=== PATIENT | male | born 1950 | race Hispanic/Latino ===

== ENCOUNTER 2017-03-06 11:12 | Outpatient (CLI) | payer MEDICARE ==
--- NOTE | 2017-03-06 14:37 | RAD ---
FRONTAL AND LATERAL IMAGING OF THE CHEST: Date: 03-06-17 Comparison: 12-05-16 History: Malignant neoplasm of the lung. FINDINGS: There is complete opacification of the right hemithorax with shift of the mediastinal structures, inc luding the trachea, to the right. Post-surgical clips are seen in the right suprahilar region. Findin g suggests prior right pneumonectomy. Left lung is clear. IMPRESSION: Stable appearance of the chest as detailed above. POS: [facility]
== END 2017-03-06 11:13 | disposition home or self-care (01) ==
LOC: RAD 11:12
PROVIDERS: ATTEND Internal Medicine Medical Oncology
DX: Z51.11 Encounter for antineoplastic chemotherapy (principal); C34.2 Malignant neoplasm of middle lobe, bronchus or lung; R11.2 Nausea with vomiting, unspecified; D70.9 Neutropenia, unspecified
CPT/HCPCS: 36415; 71020; 80053; 82248; 83615; 84100; 84550

== ENCOUNTER 2017-06-02 11:08 | Outpatient (CLI) | payer MEDICARE ==
--- NOTE | 2017-06-02 11:43 | RAD ---
2 VIEWS CHEST: Date: 06/02/17 PROVIDED CLINICAL HISTORY: History of lung cancer status post right pneumonectomy. FINDINGS: Comparison made with study dated 03/06/17. Opacification of the right hemithorax with shift of the mediastinal contents rightward is again noted compatible with the provided clinical history of prior pneumonectomy. The left lung remains clear. T here is no evidence for left-sided pleural fluid. There is no evidence for pneumothorax. IMPRESSION: Stable radiographic appearance of the chest. POS: [facility]
== END 2017-06-02 11:09 | disposition home or self-care (01) ==
LOC: RAD 11:08
PROVIDERS: ATTEND Internal Medicine Medical Oncology
DX: C34.90 Malignant neoplasm of unspecified part of unspecified bronchus or lung (principal); Z90.2 Acquired absence of lung [part of]
CPT/HCPCS: 71046

== ENCOUNTER 2017-09-01 12:45 | Outpatient (CLI) | payer MEDICARE ==
--- NOTE | 2017-09-01 13:19 | RAD ---
CHEST PA AND LATERAL VIEWS: HISTORY: Malignant neoplasm middle lobe bronchus of lung. Lung cancer. Right pneumonectomy. COMPARISON: 06/02/2017 FINDINGS: Postop changes of right pneumonectomy with opacification of the right hemithorax and mediastinal shif t to the right is stable since the previous study. The left lung is well expanded and clear. There are mild degenerative changes in the spine. IMPRESSION: Stable exam. No acute process. POS: [facility]
== END 2017-09-01 12:46 | disposition home or self-care (01) ==
LOC: RAD 12:45
PROVIDERS: ATTEND Internal Medicine Medical Oncology
DX: C34.2 Malignant neoplasm of middle lobe, bronchus or lung (principal)
CPT/HCPCS: 71046

== ENCOUNTER 2017-11-24 11:27 | Outpatient (CLI) | payer MEDICARE | END 2017-11-24 11:28 | disposition home or self-care (01) | LOC: BICRAD 11:27 | PROVIDERS: ATTEND Internal Medicine Medical Oncology | DX: C34.2 Malignant neoplasm of middle lobe, bronchus or lung (principal); Z90.2 Acquired absence of lung [part of] | CPT/HCPCS: 71046 ==

== ENCOUNTER 2018-02-14 13:45 | Outpatient (CLI) | payer MEDICARE ==
--- NOTE | 2018-02-14 16:09 | RAD ---
CHEST 2 VIEWS: Date: 02/14/18 HISTORY: Malignant neoplasm of middle lobe. COMPARISON: 11/24/17, 09/23/15. FINDINGS: Persistent opacification of the right hemithorax compatible with a right pneumonectomy. There is resu ltant rightward deviation of the cardiomediastinal silhouette. Compensatory hyperinflation left lung. No pneumothorax or osseous abnormalities. IMPRESSION: No acute cardiopulmonary process. No significant interval change. POS: [facility]
== END 2018-02-14 13:46 | disposition home or self-care (01) ==
LOC: BICRAD 13:45
PROVIDERS: ATTEND Internal Medicine Medical Oncology
DX: C34.2 Malignant neoplasm of middle lobe, bronchus or lung (principal)
CPT/HCPCS: 71046

== ENCOUNTER 2018-05-09 12:44 | Outpatient (CLI) | payer MEDICARE ==
--- NOTE | 2018-05-09 15:05 | RAD ---
CHEST TWO VIEWS: INDICATIONS: History of malignant neoplasm of the middle lobe. Also history of neutropenia, nausea, and vomiting. COMPARISON: 02/14/2018 FINDINGS: There is stable, complete opacification of the right hemithorax. The left lung is clear. There is s table shifting of the mediastinum from left to right. Surgical clips within the right hilar region a re stable. Osseous structures are unchanged. IMPRESSION: No acute abnormality is seen. POS: [facility]
== END 2018-05-09 12:45 | disposition home or self-care (01) ==
LOC: BICRAD 12:44
PROVIDERS: ATTEND Internal Medicine Medical Oncology
DX: C34.2 Malignant neoplasm of middle lobe, bronchus or lung (principal)
CPT/HCPCS: 71046

== ENCOUNTER 2018-05-23 12:45 | Outpatient (CLI) | payer MEDICARE ==
--- NOTE | 2018-05-23 14:46 | RAD ---
STANDARD ADULT BONE SURVEY: INDICATIONS: History of malignant neoplasm of the bronchus and multiple myeloma. COMPARISON: Whole body bone scan, dated 10/11/2016. FINDINGS: No suspicious lytic or osteoblastic lesion is identified involving the axial or appendicular skeleton . There is mild degenerative arthrosis of both hips. There are scattered vascular calcifications. There are suspected pars defects of L4 with grade 1 anterolisthesis. Advanced disk degenerative dise ase is seen at L2-L3, L4-L5, and L5-S1, with degenerative levoscoliosis centered at L2-L3. There is slight retrolisthesis of L2 on L3 and of L1 on L2. There is slight retrolisthesis of C3 on C4. Ther e is post surgical change of a right pneumonectomy. IMPRESSION: No suspicious osteolytic or osteoblastic lesion demonstrated. POS: [facility]
== END 2018-05-23 12:46 | disposition home or self-care (01) ==
LOC: BICRAD 12:45
PROVIDERS: ATTEND Internal Medicine Medical Oncology
DX: M89.9 Disorder of bone, unspecified (principal); C90.00 Multiple myeloma not having achieved remission
CPT/HCPCS: 77075

== ENCOUNTER 2018-06-05 10:38 | Outpatient (CLI) | payer MEDICARE ==
--- NOTE | 2018-06-05 15:08 | NM ---
WHOLE BODY BONE SCAN: HISTORY: Malignant neoplasm of middle lobe, bronchus of lung. RADIOPHARMACEUTICAL: 32 mCi Technetium 99m-MDP injected intravenously. FINDINGS: Multiple foci of abnormally increased tracer localization is seen in the skeleton including the thora columbar spine, pelvis, right proximal femur, humeral heads, ribs, and right distal humerus. These a re consistent with metastatic disease. Tracer excretion through the kidneys within normal limits. I ncreased uptake in the elbows, breasts, and feet are consistent with degenerative changes. IMPRESSION: Findings are consistent with osseous metastatic disease. POS: [facility]
== END 2018-06-05 10:39 | disposition home or self-care (01) ==
LOC: NM 10:38
PROVIDERS: ATTEND Internal Medicine Medical Oncology
DX: C34.2 Malignant neoplasm of middle lobe, bronchus or lung (principal); R74.8 Abnormal levels of other serum enzymes
CPT/HCPCS: 78306; A9503

== ENCOUNTER 2018-06-15 08:48 | Outpatient (CLI) | payer MEDICARE ==
--- NOTE | 2018-06-15 11:42 | PET ---
PET WITH CT SKULL TO MID THIGH: CLINICAL HISTORY: Malignant neoplasm of middle lobe right bronchus/right lung. RADIOPHARMACEUTICAL: 10.7 mCi F18-FDG IV interspersed with 10 mL 0.9% sodium chloride. FINDINGS: There are numerous abnormal hypermetabolic lesions present. Within the abnormal right hemithorax whic h demonstrates a decreased volume and circumferential pleural abnormal thickening and internal hypode nsity, there is increased metabolic activity along the pleural margin notably anterolaterally up to 2 .7 SUV. The underlying liver is elevated. The liver demonstrates a heterogeneous degree of metabolic activity. The possibility of small superimposed liver lesions cannot be entirely excluded as SUV major urements do measure greater than 3 and some of these are punctate in size. There is a soft tissue nod ule adjacent to the left scapula with a SUV of 3.8. Numerous hypermetabolic foci centered within the lower thoracic and upper lumbar spine involving T11, T12, L1, and L2 are present, more obvious within the T11 and L2 vertebral bodies. SUV maximum measures up to 2.9 within these regions. There is a hyp ermetabolic lesion of the left 10th rib with SUV maximum of 3.1. There is a hypermetabolic lesion [place] roximating the right ischial tuberosity with a SUV of approximately 3.9. A focus of increased metabol ic activity localizes to the right aspect of the rectosigmoid colon, 4.6 SUV, nonspecific given its l ocation within the alimentary canal. The possibility of an underlying colorectal lesion cannot be exc luded on the basis of this exam, however. IMPRESSION: 1. Scintigraphic evidence to indicate diffuse osseous and soft tissue metastases. 2. Indeterminate focus of hypermetabolism at the rectosigmoid colon. Recommend follow-up with colono scopy. 3. Subtle, nonspecific, heterogeneous metabolic activity of the liver as discussed above. Recommend a follow-up liver mass protocol CT of abdomen to exclude the possibility of small, developing hepatic lesions. POS: [facility]
== END 2018-06-15 08:49 | disposition home or self-care (01) ==
LOC: PET 08:48
PROVIDERS: ATTEND Internal Medicine Medical Oncology
DX: C34.2 Malignant neoplasm of middle lobe, bronchus or lung (principal); C79.51 Secondary malignant neoplasm of bone; C49.9 Malignant neoplasm of connective and soft tissue, unspecified
CPT/HCPCS: 78815; A9552

== ENCOUNTER 2018-06-21 12:30 | Outpatient (CLI) | payer MEDICARE ==
--- NOTE | 2018-06-21 13:34 | RAD ---
TWO VIEWS RIGHT HUMERUS: HISTORY: Bone disorder. Evaluate for a pathologic fracture. COMPARISON: None. FINDINGS: No fracture. No cortical irregularity or periosteal reaction. No lytic or blastic lesions. IMPRESSION: Unremarkable 2 views right humerus. POS: [facility]
--- NOTE | 2018-06-21 13:47 | RAD ---
LUMBAR SPINE 2 VIEWS: HISTORY: Disorder of the bone. Evaluate for pathologic fracture. COMPARISON: None. FINDINGS: There are 5 lumbar-type vertebral bodies. Mild leftward curvature of the lumbar spine. Lumbar spine vertebral body height is maintained. There is no fracture. There is grade I retrolisthesis of L1 u klarissa L2, L2 upon L3. There is grade I-II anterolisthesis of L4 upon L5. Vacuum disk phenomenon at L2 -L3. There appears to be sclerosis involving the L2 vertebral body without evidence of collapse or fractur e. The possibility of metastatic involvement is raised and is confirmed on a CT used for attenuation correction from a PET scan on 06/15/2018. FINDINGS: 1. Osseous metastasis at L2. No evidence of a pathologic fracture. 2. Extensive degenerative change of the lumbar spine with vacuum disk phenomenon and spondylolysis. POS: [facility]
--- NOTE | 2018-06-21 13:53 | RAD ---
PELVIC RADIOGRAPH: DATE: 06/21/2018. PROVIDED CLINICAL HISTORY: Lung cancer. FINDINGS: Correlation is made with CT data acquired as part of the PET CT examination of 06/15/2018 as well as t he bone scan dated 06/05/2018. There is subtle asymmetric sclerosis present within the intertrochanter ic region of the right proximal femur, likely corresponding to the sclerotic lesion seen in this loca tion on the CT portion of the PET examination referenced above. There are several additional sclerot ic lesions present within the pelvis seen by CT that are less radiographically apparent. IMPRESSION: Findings compatible with known osseous metastatic disease. POS: [facility]
--- NOTE | 2018-06-21 13:57 | RAD ---
THORACIC SPINE THREE VIEWS: 06/21/2018 HISTORY: Disorder of bone. COMPARISON: Bone scan on 06/05/2018. FINDINGS: There are post surgical changes involving the right hemithorax with shift of the mediastinal structur es to the right and complete opacification of the right hemithorax, likely related to a right lobecto my. There is increased density seen within the right aspect of the T11 vertebral body and more diffusely involving the L2 vertebral body, which corresponds to sclerotic metastatic lesions within these verte bral bodies on prior PET CT scan examination, and these areas also demonstrated abnormal uptake on ramone ne scan. No definite additional sclerotic or lytic lesions are appreciated within the remaining vert ebral bodies, although, on the lateral projection, overlying structures limit evaluation of the mid a nd upper thoracic spine. There is right convex curvature of the thoracolumbar spine. IMPRESSION: 1. Sclerotic metastatic lesions in the T12 and L2 vertebral bodies, which correspond to abnormalitie s seen on prior PET scan on 06/15/2018 and prior bone scan on 05/23/2018. 2. Multilevel degenerative changes. 3. No fracture or subluxation is appreciated. 4. Mild S-shaped scoliotic curvature, thoracolumbar spine. 5. Post surgical changes related to right lobectomy. POS: [facility]
== END 2018-06-21 12:31 | disposition home or self-care (01) ==
LOC: BICRAD 12:30
PROVIDERS: ATTEND Internal Medicine Medical Oncology
DX: M84.411A Pathological fracture, right shoulder, initial encounter for fracture (principal); M89.8X9 Other specified disorders of bone, unspecified site; C34.2 Malignant neoplasm of middle lobe, bronchus or lung; C79.51 Secondary malignant neoplasm of bone; M47.815 Spondylosis without myelopathy or radiculopathy, thoracolumbar region; M47.816 Spondylosis without myelopathy or radiculopathy, lumbar region; Z98.890 Other specified postprocedural states
CPT/HCPCS: 72072; 72100; 72170

== ENCOUNTER 2018-07-02 08:43 | Day surgery (SDC) | payer MEDICARE, BC ==
[2018-06-29 13:25] VITALS: BMI 31.4
[2018-07-02 08:58] LABS: Hemoglobin 13.2 g/dL (14.0-18.0); Mean Corpuscular HGB CONC 31.5 g/dL (32.0-36.0); Mean Corpuscular Hemoglobin 28.6 pg (27.0-31.0); Mean Corpuscular Volume 90.8 fL (78.0-98.0); Platelet Count 302 thou/uL (130-400); RBC Distribution Width 13.3 % (11.5-14.5); Red Blood Cell (RBC) Count 4.61 mill/uL (4.70-6.10); White Blood Cell (WBC) Count 6.3 thou/uL (4.8-10.8)
[2018-07-02 09:04] LABS: Prothrombin Time 13.6 SEC (12.0-14.7)
[2018-07-02 09:05] LABS: PTT 35.7 SEC (22.9-36.1)
[2018-07-02] MEDS ORDERED: Sodium Chloride 0.9% 1,000 ML IV SCH (10:00)
[2018-07-02] MEDS ORDERED: Acetaminophen 500 MG TAB PO PRN (10:00)
[2018-07-02] MEDS ORDERED: hydrALAZINE 20 MG/ML VIAL SLOW IVP SCH (10:00)
[2018-07-02] MEDS ORDERED: Sodium Bicarbonate 2.5 MEQ/5 ML VIAL ONE (10:20)
[2018-07-02] MEDS ORDERED: Fentanyl 100 MCG/2 ML VIAL ONE (10:20)
[2018-07-02] MEDS ORDERED: Lidocaine 1% PF 5 ML VIAL ONE (10:20)
[2018-07-02] MEDS ORDERED: Midazolam HCl 2 mg/2 ml Vial ONE (10:20)
[2018-07-02 12:30] VITALS: BP 190/107; TEMP 98.1
--- NOTE | 2018-07-02 13:35 | CT ---
CT GUIDED BONE BIOPSY: HISTORY: Metastatic disease. COMPARISON: A PET CT 06/15/2018. FINDINGS: The patient was brought to the CT suite. All questions were answered. Informed consent was obtained . Timeout performed. The patient's right buttocks was prepped and draped in normal fashion and the left buttocks was prepp ed and draped in normal sterile fashion. The safest locale for biopsy ended up being the left sacral area of sclerosis. Using a 16-gauge biopsy set, a 15 mm core was obtained through the area of sclerosis. Pathology conf irmed adequacy. IMPRESSION: Technically successful CT-guided biopsy. Pathology is pending. POS: [facility]
== END 2018-07-02 13:00 | disposition home or self-care (01) ==
LOC: CT 08:43
PROVIDERS: ATTEND Internal Medicine Medical Oncology
PROC: 0QB13ZX Excision of Sacrum, Percutaneous Approach, Diagnostic (ICD-10-PCS; principal; 2018-07-02)
DX: C79.51 Secondary malignant neoplasm of bone (principal); C34.2 Malignant neoplasm of middle lobe, bronchus or lung; E78.5 Hyperlipidemia, unspecified; I10 Essential (primary) hypertension; E11.9 Type 2 diabetes mellitus without complications; Z87.891 Personal history of nicotine dependence; Z79.899 Other long term (current) drug therapy
CPT/HCPCS: 20225; 36415; 77012; 85027; 85610; 85730; 88307; 88333; 88341; 88342; J0360; J2001; J2250; J3010

== ENCOUNTER 2018-08-16 10:06 | Day surgery (SDC) | payer BC, MEDICARE ==
[2018-08-16] MEDS ORDERED: Lidocaine 1% PF 5 ML VIAL ONE (10:44)
[2018-08-16] MEDS ORDERED: PHENYLEPHRINE-NS 100 MCG/ML 10 ML SYRINGE ONE (10:44)
[2018-08-16] MEDS ORDERED: Ondansetron PF 4 MG/2 ML Vial ONE (10:44)
[2018-08-16] MEDS ORDERED: PROPOFOL 200 MG/20 ML VIAL ONE (10:44)
[2018-08-16] MEDS ORDERED: Bupivacaine/Epinephrine 0.25% 30 ML VIAL ONE (13:08)
[2018-08-16] MEDS ORDERED: Lidocaine 2% PF 5 ML VIAL ONE (13:08)
[2018-08-16] MEDS ORDERED: Fentanyl 100 MCG/2 ML VIAL ONE (13:09)
[2018-08-16] MEDS ORDERED: Midazolam HCl 2 mg/2 ml Vial ONE (13:09)
--- NOTE | 2018-08-16 17:20 | RAD ---
PORTABLE CHEST ONE VIEW: 08/16/2018 3:04 p.m. HISTORY: Mediport placement. COMPARISON: 05/09/2018 FINDINGS: There is stable, complete opacification of the right hemithorax with mediastinal shift to the right. The heart size is stable. The parenchymal changes in the left lung base have worsened in the interi m, since 05/09/2018. A superimposed acute process cannot be excluded. There is a right internal jugular Port-A-Cath with the tip in the projection of the SVC. No definite pneumothorax is seen. POS: [facility]
--- NOTE | 2018-08-16 17:29 | OP ---
DATE OF PROCEDURE: 08/16/2018 PREOPERATIVE DIAGNOSIS: Lung cancer. POSTOPERATIVE DIAGNOSIS: Lung cancer. PROCEDURE PERFORMED: Tunnelled central line subcutaneous port (MediPort CT injectable). ANESTHESIA: General. ESTIMATED BLOOD LOSS: Minimal. COMPLICATIONS: None. SPECIMEN: None. FINDINGS: Tip of the catheter was at atriocaval junction. DESCRIPTION OF PROCEDURE: The patient was taken to the operating room and laid supine on the operating room table. After general anesthetic was obtained, bilateral neck and chest were prepped and draped in a sterile fashion. Local anesthetic was infiltrated over the right internal jugular vein. Internal jugular vein was cannulated using a 22-gauge finder needle, followed by a Seldinger needle. Wire was passed into the superior vena cava under fluoro guidance. A small manpreet was made to at the wire entrance site. A separate 3 cm incision was made in the right upper chest. Subcutaneous pocket made below the lower incision. The tubing for the MediPort tunnelled from the inferior to superior incision. Introducer sheath was placed over the wire into the superior vena cava under fluoro guidance. The dilator and wire were removed. The end of the catheter sewn into the sheath. The sheath was peeled away. The tip of the catheter was at the atriocaval junction. MediPort tubing was cut to fit the MediPort at the lower incision. Tubing was connected to the MediPort. The MediPort sewn to the chest wall in the subcutaneous pocket using Prolene. MediPort flushes and draws blood without difficulty, flushed with a heparin flush. The wounds were all irrigated, closed using 3-0 Vicryl, 4-0 Monocryl, and Dermabond. The patient was sent to Recovery in stable condition. All instrument counts, needle counts, and lap counts were correct. Job ID: [id number]
== END 2018-08-16 16:45 | disposition home or self-care (01) ==
LOC: SDC 10:06
PROVIDERS: ATTEND Surgery
PROC: 0JH63WZ Insertion of Totally Implantable Vascular Access Device into Chest Subcutaneous Tissue and Fascia, Percutaneous Approach (ICD-10-PCS; principal; 2018-08-16)
DX: C34.90 Malignant neoplasm of unspecified part of unspecified bronchus or lung (principal); M19.90 Unspecified osteoarthritis, unspecified site; E11.9 Type 2 diabetes mellitus without complications; I10 Essential (primary) hypertension; Z79.899 Other long term (current) drug therapy
CPT/HCPCS: 71045; C1788; J0690; J1642; J2001; J2250; J3010

== ENCOUNTER 2018-09-13 10:51 | Outpatient (CLI) | payer BC, MEDICARE ==
--- NOTE | 2018-09-13 13:21 | PET ---
EXAM: PET CT skull to mid thigh COMPARISON: 06/15/2018 HISTORY: Lung cancer with metastatic disease TECHNIQUE: A PET/CT was performed from the skull to the mid thigh after administration of 12.2 millic uries of F-18 FDG. Evaluation was performed on a [email or web address] workstation. FINDINGS: NECK: No areas of hypermetabolic activity CHEST: The patient is status post right pneumonectomy. There is a trace right pleural effusion. There is hypermetabolic activity along the remaining pleura of the right thoracic cavity with maximum SUV value of 3.2. ABDOMEN/PELVIS: No areas of hypermetabolic activity SKELETON: Multiple diffuse hypermetabolic lesions are seen scattered throughout the skeleton. The les ions have increased in size and number compared to the prior examination. Hypermetabolic activity is seen within the bone surrounding both shoulders and both hips. Hypermetabolic activity is seen wit hin the ribs, skeleton, and bones of the pelvis. Some of these areas of hypermetabolic activity have CT correlates of blastic lesions but other regions do not have CT correlates. There is an area of hypermetabolic activity along the left anterolateral aspect of the scapula with m aximum SUV value of 5.7. CT images used for attenuation correction show a Mediport with its tip in the superior vena cava. IMPRESSION: 1. Residual hypermetabolic activity in the right thorax suggests residual disease 2. Worsening of osseous metastatic disease 3. Persistent soft tissue hypermetabolic activity adjacent to the left scapula.
== END 2018-09-13 10:52 | disposition home or self-care (01) ==
LOC: PET 10:51
PROVIDERS: ATTEND Internal Medicine Medical Oncology
DX: C34.90 Malignant neoplasm of unspecified part of unspecified bronchus or lung (principal); C79.51 Secondary malignant neoplasm of bone
CPT/HCPCS: 78815; A9552

== ENCOUNTER 2018-10-02 13:46 | Outpatient (CLI) | payer MEDICARE ==
--- NOTE | 2018-10-02 14:28 | RAD ---
2 views right humerus. HISTORY: Metastatic disease with bony destruction. AP and lateral views right humerus is obtained. No evidence of right femoral fractures, subluxations or bony lesions seen. IMPRESSION: normal 2 views right humerus.
--- NOTE | 2018-10-02 14:30 | RAD ---
One view left humerus History: Metastatic bony disease. AP view left humerus demonstrates areas of sclerotic bony changes seen involving the left humeral hea d. This may represent metastatic disease. IMPRESSION: Area of sclerosis involving the left humeral head.
--- NOTE | 2018-10-02 14:35 | RAD ---
XR Femur Lt 2 View STANDARD INDICATION: Evaluate for metastatic disease and bone destruction with history of lung cancer COMPARISON: PET/CT dated 09/13/2018 and bone scan dated June 05, 2018 FINDINGS: Bones: There are sclerotic lesions involving the left ilium and left ischial tuberosity. No suspiciou s osteolytic or osteoblastic lesion is evident involving the femur. There is new fragmentation involving the anterior inferior iliac spine in the region of the rectus femoris attachment suspicious for a pathologic fracture. There is fragmentation involving the tibial tuberosity which can be seen with old Minot-Schlatter's pathology. Soft tissues: There are moderate vascular calcifications seen involving the visualized vasculature. Joints: There is mild degenerative change of the left hip and left knee. IMPRESSION: No metastatic disease of the left femur demonstrated radiographically. There are scleroti c lesions involving the left ilium and left ischial tuberosity consistent with osseous metastatic disease. There is suspicion for new fragmentation involving the left anterior inferior iliac spine li debra related to a pathologic avulsion fracture.
--- NOTE | 2018-10-02 14:36 | RAD ---
2 VIEWS RIGHT FEMUR: HISTORY: Lung cancer. FINDINGS: AP and lateral views right femur demonstrate an area of slight increased sclerotic change in the prox imal right femur in the region of the intertrochanteric portion. This may represent a possible metastatic lesion. IMPRESSION: Area of slight sclerotic change in the proximal right femur in the intertrochanteric portion. Transcribed Date/Time: 10/02/2018 2:40 PM
== END 2018-10-02 13:47 | disposition home or self-care (01) ==
LOC: BICRAD 13:46
PROVIDERS: ATTEND Internal Medicine Medical Oncology
DX: C34.2 Malignant neoplasm of middle lobe, bronchus or lung (principal); C79.51 Secondary malignant neoplasm of bone; M89.8X2 Other specified disorders of bone, upper arm; M89.8X5 Other specified disorders of bone, thigh

== ENCOUNTER 2018-10-17 09:17 | Day surgery (SDC) | payer MEDICARE ==
[~2018-10-17 09:17] MED LIST: Nivolumab 240 MG in Sodium Chloride 0.9% 250 ML 136 ML IVPB SCH; Nivolumab 240 MG in Sodium Chloride 0.9% 250 ML 250 ML IVPB SCH
[2018-10-17] MEDS ORDERED: Sodium Chloride 0.9% 20 ML ONE (09:25)
[2018-10-17 10:51] VITALS: BP 139/77; TEMP 98.9
== END 2018-10-17 12:28 | disposition home or self-care (01) ==
LOC: ONC/OP 09:17
PROVIDERS: ATTEND Internal Medicine Medical Oncology
DX: Z51.11 Encounter for antineoplastic chemotherapy (principal); C34.2 Malignant neoplasm of middle lobe, bronchus or lung; D47.2 Monoclonal gammopathy; D70.9 Neutropenia, unspecified; R11.2 Nausea with vomiting, unspecified
CPT/HCPCS: 96413; J1642; J7050; J9299

== ENCOUNTER 2018-11-02 08:53 | Day surgery (SDC) | payer MEDICARE ==
[~2018-11-02 08:53] MED LIST changes: -Nivolumab 240 MG in Sodium Chloride 0.9% 250 ML 136 ML IVPB SCH
[2018-11-02] MEDS ORDERED: Sodium Chloride 0.9% 20 ML ONE (09:00)
[2018-11-02 09:27] VITALS: BP 168/79; TEMP 98.7
== END 2018-11-02 11:42 | disposition home or self-care (01) ==
LOC: ONC/OP 08:53
PROVIDERS: ATTEND Internal Medicine Medical Oncology
DX: Z51.12 Encounter for antineoplastic immunotherapy (principal); C34.2 Malignant neoplasm of middle lobe, bronchus or lung; D70.9 Neutropenia, unspecified; D47.2 Monoclonal gammopathy; Z79.899 Other long term (current) drug therapy
CPT/HCPCS: 96413; J1642; J7050; J9299

== ENCOUNTER 2018-11-16 09:16 | Day surgery (SDC) | payer MEDICARE ==
[2018-11-16 13:04] VITALS: BP 140/78; TEMP 98.5
== END 2018-11-16 15:41 | disposition home or self-care (01) ==
LOC: ONC/OP 09:16
PROVIDERS: ATTEND Internal Medicine Medical Oncology
DX: Z51.12 Encounter for antineoplastic immunotherapy (principal); C34.2 Malignant neoplasm of middle lobe, bronchus or lung; D47.2 Monoclonal gammopathy
CPT/HCPCS: 96413; J7050; J9299

== ENCOUNTER 2018-11-30 09:36 | Day surgery (SDC) | payer MEDICARE ==
[2018-11-30] MEDS ORDERED: Sodium Chloride 0.9% 20 ML ONE (09:42)
[2018-11-30 09:59] VITALS: BP 142/76; TEMP 97.8
== END 2018-11-30 12:24 | disposition home or self-care (01) ==
LOC: ONC/OP 09:36
PROVIDERS: ATTEND Internal Medicine Medical Oncology
DX: Z51.12 Encounter for antineoplastic immunotherapy (principal); C34.2 Malignant neoplasm of middle lobe, bronchus or lung; D47.2 Monoclonal gammopathy; D70.9 Neutropenia, unspecified; R11.2 Nausea with vomiting, unspecified
CPT/HCPCS: 96413; J1642; J7050; J9299

== ENCOUNTER 2018-12-14 09:30 | Day surgery (SDC) | payer MEDICARE ==
[2018-12-14] MEDS ORDERED: Sodium Chloride 0.9% 20 ML ONE (09:40)
[2018-12-14 11:22] VITALS: BP 143/68; TEMP 98.2
== END 2018-12-14 15:03 | disposition home or self-care (01) ==
LOC: ONC/OP 09:30
PROVIDERS: ATTEND Internal Medicine Medical Oncology
DX: Z51.12 Encounter for antineoplastic immunotherapy (principal); C34.2 Malignant neoplasm of middle lobe, bronchus or lung; D47.2 Monoclonal gammopathy; D70.9 Neutropenia, unspecified
CPT/HCPCS: 96413; J1642; J7050; J9299

== ENCOUNTER 2018-12-28 09:42 | Day surgery (SDC) | payer OTHER, MEDICARE ==
[~2018-12-28 09:42] MED LIST changes: +Zoledronic Acid 4 MG in Sodium Chloride 0.9% 100 ML IVPB SCH
[2018-12-28 10:45] LABS: ALT (SGPT) 13 U/L (8-55); AST (SGOT) 12 U/L (5-34); Albumin 3.8 g/dL (3.4-4.8); Alkaline Phosphatase 160 U/L (40-150); BUN (Urea Nitrogen) 21 mg/dL (8.4-25.7); Bilirubin, Total 0.3 mg/dL (0.2-1.2); Calc. Creatinine Clearance 60 mL/min (70-130); Calcium 8.9 mg/dL (7.8-10.44); Carbon Dioxide 30 mmol/L (23-31); Estimated GFR-MDRD 65; Globulin 4.2 g/dL (2.4-3.5); Glucose 178 mg/dL (80-115)
[2018-12-28] MEDS ORDERED: Sodium Chloride 0.9% 20 ML ONE (10:48)
[2018-12-28 10:53] LABS: Anion Gap 12 mmol/L (10-20); Chloride 100 mmol/L (98-107); Potassium 4.1 mmol/L (3.5-5.1); Sodium 137 mmol/L (136-145)
== END 2018-12-28 12:27 | disposition home or self-care (01) ==
LOC: ONC/OP 09:42
PROVIDERS: ATTEND Internal Medicine Medical Oncology
DX: Z51.12 Encounter for antineoplastic immunotherapy (principal); C34.2 Malignant neoplasm of middle lobe, bronchus or lung; C79.51 Secondary malignant neoplasm of bone; D47.2 Monoclonal gammopathy; D70.9 Neutropenia, unspecified
CPT/HCPCS: 80053; 96366; 96413; J1642; J3489; J3490; J7050; J9299

== ENCOUNTER 2019-01-11 09:59 | Day surgery (SDC) | payer OTHER, MEDICARE ==
[~2019-01-11 09:59] MED LIST changes: +Nivolumab 240 MG in Sodium Chloride 0.9% 250 ML 136 ML IVPB SCH; -Nivolumab 240 MG in Sodium Chloride 0.9% 250 ML 250 ML IVPB SCH; -Zoledronic Acid 4 MG in Sodium Chloride 0.9% 100 ML IVPB SCH
[2019-01-11] MEDS ORDERED: Sodium Chloride 0.9% 20 ML ONE (10:02)
[2019-01-11 10:19] VITALS: BP 132/65; TEMP 98
== END 2019-01-11 12:00 | disposition home or self-care (01) ==
LOC: ONC/OP 09:59
PROVIDERS: ATTEND Internal Medicine Medical Oncology
DX: Z51.12 Encounter for antineoplastic immunotherapy (principal); C34.2 Malignant neoplasm of middle lobe, bronchus or lung; C79.51 Secondary malignant neoplasm of bone; D47.2 Monoclonal gammopathy
CPT/HCPCS: 36415; 80053; 82248; 83615; 84100; 84439; 84443; 84550; 96413; J1642; J7050; J9299

== ENCOUNTER 2019-01-25 09:18 | Day surgery (SDC) | payer MEDICARE ==
[~2019-01-25 09:18] MED LIST changes: +Zoledronic Acid 4 MG in Sodium Chloride 0.9% 100 ML IVPB SCH
[2019-01-25 10:42] VITALS: BP 137/79; TEMP 97.9
== END 2019-01-25 11:27 | disposition home or self-care (01) ==
LOC: ONC/OP 09:18
PROVIDERS: ATTEND Internal Medicine Medical Oncology
DX: Z51.12 Encounter for antineoplastic immunotherapy (principal); C34.2 Malignant neoplasm of middle lobe, bronchus or lung; C79.51 Secondary malignant neoplasm of bone
CPT/HCPCS: 96413; J3489; J3490; J7050; J9299

== ENCOUNTER 2019-02-01 07:30 | Outpatient (CLI) | payer MEDICARE ==
--- NOTE | 2019-02-01 09:54 | PET ---
PET CT SKULL TO MID THIGH: COMPARISON: Prior PET CT, 09/13/2018. HISTORY: Lung cancer. TECHNIQUE: A PET/CT was performed from the skull to the mid thigh after administration of 11.5 millicuries of F- 18 FDG. Evaluation was performed on a [id number] workstation. FINDINGS: NECK: No areas of hypermetabolic activity. CHEST: There is persistent hypermetabolic activity of the pleura of the postoperative right hemithorax, with maximum SUV approximately 2.7 compared to 3.2 on prior exam. There is persistent postoperative fluid density interposed between the thickened postoperative pleura with diffuse postoperative volume loss of the right hemithorax again demonstrated. Redemonstrated at the anterior left periscapular region, there is a hypermetabolic focus which remains, maximum SUV 5.2, with decrease from prior SUV of 5.6. ABDOMEN/PELVIS: Scattered activity of the bowel is redemonstrated which may relate to physiologic activity. SKELETON: There has been interval decrease in number of hypermetabolic lesions as well as decrease in intensity of hypermetabolic activity. There do remain hypermetabolic lesions of the osseous structures notably within the spine and osseous pelvis. Maximum SUV is approximately 3 located within the region of the sacrum, which is a decrease from prior SUV of this region of 4.1. IMPRESSION: Interval decrease in hypermetabolic activity within the postoperative right chest, and involving left periscapular lesion, in addition to decreased number and hypermetabolism of osseous metastatic lesions, indicating interval response to therapy. Transcribed Date/Time: 02/01/2019 10:03 AM
== END 2019-02-01 07:31 | disposition home or self-care (01) ==
LOC: PET 07:30
PROVIDERS: ATTEND Internal Medicine Medical Oncology
DX: C34.90 Malignant neoplasm of unspecified part of unspecified bronchus or lung (principal); C79.51 Secondary malignant neoplasm of bone
CPT/HCPCS: 78815; A9552

== ENCOUNTER 2019-02-08 08:56 | Day surgery (SDC) | payer MEDICARE, OTHER ==
[~2019-02-08 08:56] MED LIST changes: -Zoledronic Acid 4 MG in Sodium Chloride 0.9% 100 ML IVPB SCH
[2019-02-08] MEDS ORDERED: Sodium Chloride 0.9% 20 ML ONE (08:59)
[2019-02-08 13:55] VITALS: BP 168/78; TEMP 97.6
== END 2019-02-08 13:56 | disposition home or self-care (01) ==
LOC: ONC/OP 08:56
PROVIDERS: ATTEND Internal Medicine Medical Oncology
DX: Z51.12 Encounter for antineoplastic immunotherapy (principal); C34.2 Malignant neoplasm of middle lobe, bronchus or lung; C79.51 Secondary malignant neoplasm of bone; D47.2 Monoclonal gammopathy; D70.9 Neutropenia, unspecified
CPT/HCPCS: 96413; J7050; J9299

== ENCOUNTER 2019-02-22 09:22 | Day surgery (SDC) | payer OTHER, MEDICARE ==
[~2019-02-22 09:22] MED LIST changes: +Sodium Chloride 0.9% 20 ML ONE; +Zoledronic Acid 4 MG in Sodium Chloride 0.9% 100 ML IVPB SCH
[2019-02-22 11:43] VITALS: BP 179/87; TEMP 97.8
== END 2019-02-22 11:45 | disposition home or self-care (01) ==
LOC: ONC/OP 09:22
PROVIDERS: ATTEND Internal Medicine Medical Oncology
DX: Z51.12 Encounter for antineoplastic immunotherapy (principal); C34.2 Malignant neoplasm of middle lobe, bronchus or lung; C79.51 Secondary malignant neoplasm of bone
CPT/HCPCS: 82565; 96367; 96413; J1642; J3489; J3490; J7050; J9299

== ENCOUNTER 2019-03-08 09:28 | Day surgery (SDC) | payer OTHER, MEDICARE ==
[~2019-03-08 09:28] MED LIST changes: -Sodium Chloride 0.9% 20 ML ONE; -Zoledronic Acid 4 MG in Sodium Chloride 0.9% 100 ML IVPB SCH
[2019-03-08] MEDS ORDERED: Sodium Chloride 0.9% 20 ML ONE (09:31)
[2019-03-08 09:50] VITALS: BP 166/88; TEMP 97.8
== END 2019-03-08 12:30 | disposition home or self-care (01) ==
LOC: ONC/OP 09:28
PROVIDERS: ATTEND Internal Medicine Medical Oncology
DX: Z51.12 Encounter for antineoplastic immunotherapy (principal); C34.2 Malignant neoplasm of middle lobe, bronchus or lung; C79.51 Secondary malignant neoplasm of bone
CPT/HCPCS: 80053; 82248; 83615; 84100; 84436; 84443; 84550; 96413; J1642; J7050; J9299

== ENCOUNTER 2019-03-22 09:18 | Day surgery (SDC) | payer OTHER, MEDICARE ==
[~2019-03-22 09:18] MED LIST changes: +Zoledronic Acid 4 MG in Sodium Chloride 0.9% 100 ML IVPB SCH
[2019-03-22] MEDS ORDERED: Sodium Chloride 0.9% 20 ML ONE (09:23)
[2019-03-22 09:33] VITALS: BP 159/76; TEMP 98.8
== END 2019-03-22 11:12 | disposition home or self-care (01) ==
LOC: ONC/OP 09:18
PROVIDERS: ATTEND Internal Medicine Medical Oncology
DX: Z51.12 Encounter for antineoplastic immunotherapy (principal); C34.2 Malignant neoplasm of middle lobe, bronchus or lung; C79.51 Secondary malignant neoplasm of bone
CPT/HCPCS: 96365; J1642; J3489; J3490; J7050; J9299

== ENCOUNTER 2019-04-05 09:11 | Day surgery (SDC) | payer OTHER, MEDICARE ==
[~2019-04-05 09:11] MED LIST changes: -Zoledronic Acid 4 MG in Sodium Chloride 0.9% 100 ML IVPB SCH
[2019-04-05] MEDS ORDERED: Sodium Chloride 0.9% 20 ML ONE ×2 (09:30→09:45)
[2019-04-05 12:32] VITALS: BP 178/90; TEMP 98
== END 2019-04-05 12:34 | disposition home or self-care (01) ==
LOC: ONC/OP 09:11
PROVIDERS: ATTEND Internal Medicine Medical Oncology
DX: Z51.12 Encounter for antineoplastic immunotherapy (principal); C34.2 Malignant neoplasm of middle lobe, bronchus or lung; C79.51 Secondary malignant neoplasm of bone
CPT/HCPCS: 71046; 96413; J1642; J7050; J9299

== ENCOUNTER 2019-04-05 10:45 | Outpatient (CLI) | payer OTHER, MEDICARE ==
--- NOTE | 2019-04-05 11:08 | RAD ---
EXAM: Chest 2 views: HISTORY: Malignant neoplasm of the right middle lobe of the lung COMPARISON: 05/09/2018 FINDINGS: There is a normal-sized cardiomediastinal silhouette. Is complete opacification of the right thorax. There is a right IJ Mediport with its tip in the superior vena cava. There is no evidence of consolidation, mass, or pleural effusion in the left thorax.. The bones are unremarkable. IMPRESSION: Stable opacification of the right hemithorax.
== END 2019-04-05 10:46 | disposition home or self-care (01) ==
LOC: BICRAD 10:45
PROVIDERS: ATTEND Internal Medicine Medical Oncology
DX: C34.2 Malignant neoplasm of middle lobe, bronchus or lung (principal); R05 Cough; R91.8 Other nonspecific abnormal finding of lung field
CPT/HCPCS: 71046

== ENCOUNTER 2019-04-19 09:20 | Day surgery (SDC) | payer OTHER, MEDICARE ==
[~2019-04-19 09:20] MED LIST changes: +Zoledronic Acid 4 MG in Sodium Chloride 0.9% 100 ML IVPB SCH
[2019-04-19] MEDS ORDERED: Sodium Chloride 0.9% 20 ML ONE (09:36)
[2019-04-19 09:49] VITALS: BP 154/78; TEMP 98.7
== END 2019-04-19 11:09 | disposition home or self-care (01) ==
LOC: ONC/OP 09:20
PROVIDERS: ATTEND Internal Medicine Medical Oncology
DX: Z51.11 Encounter for antineoplastic chemotherapy (principal); C34.2 Malignant neoplasm of middle lobe, bronchus or lung; C79.51 Secondary malignant neoplasm of bone; D47.2 Monoclonal gammopathy
CPT/HCPCS: 96367; 96413; J1642; J3489; J3490; J7050; J9299

== ENCOUNTER 2019-05-03 10:08 | Day surgery (SDC) | payer OTHER, MEDICARE ==
[~2019-05-03 10:08] MED LIST changes: -Zoledronic Acid 4 MG in Sodium Chloride 0.9% 100 ML IVPB SCH
[2019-05-03] MEDS ORDERED: Sodium Chloride 0.9% 20 ML ONE (10:20)
[2019-05-03 10:25] VITALS: BP 156/85; TEMP 98
== END 2019-05-03 13:00 | disposition home or self-care (01) ==
LOC: ONC/OP 10:08
PROVIDERS: ATTEND Internal Medicine Medical Oncology
DX: Z51.12 Encounter for antineoplastic immunotherapy (principal); C34.2 Malignant neoplasm of middle lobe, bronchus or lung; C79.51 Secondary malignant neoplasm of bone
CPT/HCPCS: 36415; 80053; 82248; 83615; 84100; 84436; 84443; 84550; 96413; J1642; J7050; J9299

== ENCOUNTER 2019-05-14 09:05 | Outpatient (CLI) | payer OTHER, MEDICARE ==
--- NOTE | 2019-05-14 11:06 | RAD ---
EXAM: Chest 2 views: HISTORY: Lung cancer COMPARISON: 04/05/2019 FINDINGS: There is a normal-sized cardiomediastinal silhouette. The Mediport is unchanged in position. There is complete opacification of the right thorax from prior right pneumonectomy. The bones are unremarkable. IMPRESSION: Stable exam
--- NOTE | 2019-05-14 12:58 | CT ---
CT OF THE CHEST AND ABDOMEN: DATE: 05/14/2019. HISTORY: Lung cancer, elevated bilirubin levels. COMPARISON: Comparison is made to a prior PET CT performed 02/01/2019. TECHNIQUE: Axial CT imaging at 5 mm intervals from the thoracic inlet through the mid sacrum with IV contrast. Coronal and sagittal reformatted imaging obtained. FINDINGS: Multiple mildly prominent lymph nodes are noted within the superior mediastinum/prevascular space bobby suring up to 9-10 mm in short axis dimension, stable when compared to recent PET CT. The patient is status post pneumonectomy on the right with right pleural thickening and fluid within the hypoplastic right thoracic cavity. The left lung demonstrates no discrete mass lesion or nodule. Vascular structures of the chest demonstrate atherosclerotic calcification of the aortic arch. The osseous structures of the chest demonstrate areas of abnormal sclerosis within the proximal humer us bilaterally as well as within the scapula bilaterally, evidence of osseous metastatic disease. Th ere are numerous sclerotic foci seen within multiple bilateral ribs. There are also multiple scatter ed sclerotic foci within the thoracic spine, most prominent at the T11 vertebral level, evidence of w idespread osseous metastatic disease. There is no free intraperitoneal air. The pelvis is not imaged on this exam. There has been interva l development of mild diffuse intrahepatic biliary dilatation involving the right and left lobe of th e liver. There is marked new dilation of the common bile duct, which measures 1.7 cm in transverse d imension. This intra- and extrahepatic biliary dilation appears to be secondary to a soft tissue mas s in the region of the pancreatic head, best seen on axial image 57, measuring 1.4 cm in transverse d imension. Mild pancreatic ductal dilatation is noted. Additional solid masses are noted within the pancreatic head anterior and inferior to this measuring up to 9 mm on axial image 59 and up to 7 mm o n axial image 63. There is a mass in the adrenal gland on the left measuring approximately 1.5 cm in transverse dimensi on, stable when compared to recent PET. Right adrenal gland unremarkable. Kidneys appear unremarkab le. Incomplete assessment of the bowel appears grossly unremarkable. No retroperitoneal lymphadenopathy. Review of the osseous structures of the abdomen demonstrate numerous sclerotic foci within the partia lly imaged sacrum, evidence of osseous metastatic disease. There is also scattered sclerosis within lumbar vertebral bodies consistent with osseous metastatic disease, most prominent at the L2 level. IMPRESSION: Interval development of intra- and extrahepatic biliary dilatation with a 1.4 cm mass in the region o f the pancreatic head causing biliary obstruction, likely on the basis of malignancy. Evidence of me tastatic disease is noted with stable prevascular/superior mediastinal lymph nodes, left adrenal mass , and widespread osseous metastatic disease. POS: [facility]
[2019-05-14] MEDS ORDERED: Iopamidol 370 76% 100 ML VIAL ONE (13:26)
== END 2019-05-14 09:06 | disposition home or self-care (01) ==
LOC: ULT 09:05 → CT 09:06
PROVIDERS: ATTEND Internal Medicine Medical Oncology
DX: C34.2 Malignant neoplasm of middle lobe, bronchus or lung (principal); R94.5 Abnormal results of liver function studies; R05 Cough; K86.89 Other specified diseases of pancreas; C79.51 Secondary malignant neoplasm of bone; C77.1 Secondary and unspecified malignant neoplasm of intrathoracic lymph nodes; C79.72 Secondary malignant neoplasm of left adrenal gland
CPT/HCPCS: 71046; 71260; 74160; J1642; Q9967

== ENCOUNTER 2019-06-26 14:33 | Outpatient (CLI) | payer MEDICARE, OTHER ==
[~2019-06-26 14:33] MED LIST changes: +Magnevist 469MG/ML 20 ML VIAL ONE; -Nivolumab 240 MG in Sodium Chloride 0.9% 250 ML 136 ML IVPB SCH
--- NOTE | 2019-06-26 15:54 | MRI ---
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 Evaluate for brain metastasis. TECHNIQUE: Multiple sequences obtained in axial, sagittal, and coronal planes; pre and post IV injection of gado linium-based contrast agent: 15 mL Multihance. FINDINGS: The ventricles are normal in size and configuration. There is no restricted diffusion, abnormal intr aaxial enhancement, mass, midline shift or any other mass effect, recent intraaxial hemorrhage, or ex traaxial fluid collection. There is a mild-moderate degree of T2-hyperintensities in the cerebral whi te matter consistent with chronic ischemic white matter changes due to microvascular atherosclerosis. IMPRESSION: 1. Mild-moderate chronic ischemic white matter changes. 2. Otherwise negative. No brain metastasis. jn[] POS: [facility]
== END 2019-06-26 14:34 | disposition home or self-care (01) ==
LOC: BICMRI 14:33 → TBSIIMAG 14:34
PROVIDERS: ATTEND Radiology Radiation Oncology
DX: C34.2 Malignant neoplasm of middle lobe, bronchus or lung (principal); C79.51 Secondary malignant neoplasm of bone; C78.89 Secondary malignant neoplasm of other digestive organs; I67.82 Cerebral ischemia
CPT/HCPCS: 70553

== ENCOUNTER 2019-07-19 09:02 | Day surgery (SDC) | payer OTHER, MEDICARE ==
[~2019-07-19 09:02] MED LIST changes: -Magnevist 469MG/ML 20 ML VIAL ONE; +Nivolumab 240 MG in Sodium Chloride 0.9% 250 ML 136 ML IVPB SCH; +Zoledronic Acid 4 MG in Sodium Chloride 0.9% 100 ML IVPB SCH
[2019-07-19] MEDS ORDERED: Sodium Chloride 0.9% 20 ML ONE (09:17)
[2019-07-19 10:07] VITALS: BP 158/87; TEMP 98.4
== END 2019-07-19 11:45 | disposition home or self-care (01) ==
LOC: ONC/OP 09:02
PROVIDERS: ATTEND Internal Medicine Medical Oncology
DX: Z51.12 Encounter for antineoplastic immunotherapy (principal); C34.2 Malignant neoplasm of middle lobe, bronchus or lung; C79.51 Secondary malignant neoplasm of bone; D47.1 Chronic myeloproliferative disease
CPT/HCPCS: 96367; 96413; J1642; J3489; J3490; J7050; J9299

== ENCOUNTER 2019-08-02 09:49 | Day surgery (SDC) | payer OTHER, MEDICARE ==
[~2019-08-02 09:49] MED LIST changes: -Zoledronic Acid 4 MG in Sodium Chloride 0.9% 100 ML IVPB SCH
[2019-08-02 10:32] VITALS: BP 151/85; TEMP 98.1
[2019-08-02] MEDS ORDERED: Sodium Chloride 0.9% 20 ML ONE (11:17)
== END 2019-08-02 11:39 | disposition home or self-care (01) ==
LOC: ONC/OP 09:49
PROVIDERS: ATTEND Internal Medicine Medical Oncology
DX: Z51.12 Encounter for antineoplastic immunotherapy (principal); C34.2 Malignant neoplasm of middle lobe, bronchus or lung; C79.51 Secondary malignant neoplasm of bone; D47.2 Monoclonal gammopathy
CPT/HCPCS: 96413; J1642; J7050; J9299

== ENCOUNTER 2019-08-16 09:52 | Day surgery (SDC) | payer OTHER, MEDICARE ==
[~2019-08-16 09:52] MED LIST changes: +Zoledronic Acid 4 MG in Sodium Chloride 0.9% 100 ML IVPB SCH
[2019-08-16] MEDS ORDERED: Sodium Chloride 0.9% 20 ML ONE (09:58)
[2019-08-16 11:40] VITALS: BP 158/88; TEMP 98.5
== END 2019-08-16 11:51 | disposition home or self-care (01) ==
LOC: ONC/OP 09:52
PROVIDERS: ATTEND Internal Medicine Medical Oncology
DX: Z51.12 Encounter for antineoplastic immunotherapy (principal); C34.2 Malignant neoplasm of middle lobe, bronchus or lung; C79.51 Secondary malignant neoplasm of bone; D47.2 Monoclonal gammopathy
CPT/HCPCS: 36415; 82565; 96367; 96413; J1642; J3489; J3490; J7050; J9299

== ENCOUNTER 2019-08-30 09:17 | Day surgery (SDC) | payer OTHER, MEDICARE ==
[~2019-08-30 09:17] MED LIST changes: -Zoledronic Acid 4 MG in Sodium Chloride 0.9% 100 ML IVPB SCH
[2019-08-30] MEDS ORDERED: Sodium Chloride 0.9% 20 ML ONE (09:42)
[2019-08-30 09:44] VITALS: BP 154/83; TEMP 97.9
== END 2019-08-30 10:49 | disposition home or self-care (01) ==
LOC: ONC/OP 09:17
PROVIDERS: ATTEND Internal Medicine Medical Oncology
DX: Z51.12 Encounter for antineoplastic immunotherapy (principal); C34.2 Malignant neoplasm of middle lobe, bronchus or lung; C79.51 Secondary malignant neoplasm of bone; D47.2 Monoclonal gammopathy
CPT/HCPCS: 96413; J1642; J7050; J9299

== ENCOUNTER 2019-09-13 09:40 | Day surgery (SDC) | payer OTHER, MEDICARE ==
[~2019-09-13 09:40] MED LIST changes: +Zoledronic Acid 4 MG in Sodium Chloride 0.9% 100 ML IVPB SCH
[2019-09-13 10:48] VITALS: BP 155/74; TEMP 98.5
[2019-09-13] MEDS ORDERED: Sodium Chloride 0.9% 10 ML ONE (11:30)
== END 2019-09-13 12:21 | disposition home or self-care (01) ==
LOC: ONC/OP 09:40
PROVIDERS: ATTEND Internal Medicine Medical Oncology
DX: Z51.12 Encounter for antineoplastic immunotherapy (principal); C34.2 Malignant neoplasm of middle lobe, bronchus or lung; C79.51 Secondary malignant neoplasm of bone; D70.9 Neutropenia, unspecified; D47.2 Monoclonal gammopathy
CPT/HCPCS: 96367; 96413; J1642; J3489; J3490; J7050; J9299

== ENCOUNTER 2019-09-17 09:43 | Outpatient (CLI) | payer OTHER, MEDICARE ==
--- NOTE | 2019-09-17 14:13 | NM ---
Radionucleotide bone scan HISTORY: Lung cancer with metastatic disease. Restaging. FINDINGS: Abnormal uptake is present at each humeral head and humeral shaft, the sacrum, the pubic ra mi, right femoral neck, the lower thoracic spine at T11 and the lumbar spine at L5, and the left lateral and posterior lower ribs. Appearance of metastatic disease correlating with PET scan from 02/01/2019. Lesions at the feet may represent degenerative changes rather than metastatic foci. IMPRESSION : Widespread osseous metastatic disease involving the axial and appendicular skeleton.
== END 2019-09-17 09:44 | disposition home or self-care (01) ==
LOC: NM 09:43
PROVIDERS: ATTEND Internal Medicine Medical Oncology
DX: C34.2 Malignant neoplasm of middle lobe, bronchus or lung (principal); C79.51 Secondary malignant neoplasm of bone
CPT/HCPCS: 78306; A9503; J1642

== ENCOUNTER 2019-09-27 09:01 | Day surgery (SDC) | payer OTHER, MEDICARE ==
[~2019-09-27 09:01] MED LIST changes: -Zoledronic Acid 4 MG in Sodium Chloride 0.9% 100 ML IVPB SCH
[2019-09-27] MEDS ORDERED: Sodium Chloride 0.9% 20 ML ONE (09:02)
[2019-09-27 09:10] VITALS: BP 133/72; TEMP 97.8
== END 2019-09-27 10:37 | disposition home or self-care (01) ==
LOC: ONC/OP 09:01
PROVIDERS: ATTEND Internal Medicine Medical Oncology
DX: Z51.12 Encounter for antineoplastic immunotherapy (principal); C34.2 Malignant neoplasm of middle lobe, bronchus or lung; C79.51 Secondary malignant neoplasm of bone; D47.2 Monoclonal gammopathy; D70.9 Neutropenia, unspecified
CPT/HCPCS: 96413; J1642; J7050; J9299

== ENCOUNTER 2019-10-09 11:27 | Outpatient (CLI) | payer OTHER, MEDICARE ==
--- NOTE | 2019-10-09 14:13 | RAD ---
RIGHT FEMUR TOTAL OF 4 VIEWS: HISTORY: Pain. History of bone metastasis. COMPARISON: Comparison is made to a 10/02/2018 exam. Also compared to recent bone scan of 09/17/2019. FINDINGS: There is a nonspecific area of sclerosis in the intertrochanteric region of the right femur which cor responds to an area of activity seen on recent bone scan. The right femur is otherwise unremarkable. This focal area of sclerosis was present on the prior plain film exam of 10/02/2018. IMPRESSION: Focal area of sclerosis in the intratrochanteric region of the right femur corresponds to the area of activity on bone scan consistent with metastatic lesion. There is also abnormal sclerosis in the right inferior ischial ramus which also corresponds to abnorm al bone scan activity. POS: AH
== END 2019-10-09 11:28 | disposition home or self-care (01) ==
LOC: BICRAD 11:27
PROVIDERS: ATTEND Internal Medicine Medical Oncology
DX: C79.51 Secondary malignant neoplasm of bone (principal); C34.2 Malignant neoplasm of middle lobe, bronchus or lung; D70.9 Neutropenia, unspecified; D47.2 Monoclonal gammopathy; M89.8X5 Other specified disorders of bone, thigh

== ENCOUNTER 2019-10-11 09:52 | Day surgery (SDC) | payer OTHER, MEDICARE ==
[~2019-10-11 09:52] MED LIST changes: +Zoledronic Acid 4 MG in Sodium Chloride 0.9% 100 ML IVPB SCH
[2019-10-11] MEDS ORDERED: Sodium Chloride 0.9% 20 ML ONE (10:08)
[2019-10-11 12:06] VITALS: BP 141/81; TEMP 97.7
== END 2019-10-11 13:33 | disposition home or self-care (01) ==
LOC: ONC/OP 09:52
PROVIDERS: ATTEND Internal Medicine Medical Oncology
DX: Z51.12 Encounter for antineoplastic immunotherapy (principal); C34.2 Malignant neoplasm of middle lobe, bronchus or lung; C79.51 Secondary malignant neoplasm of bone; D47.2 Monoclonal gammopathy
CPT/HCPCS: 82565; 96367; 96413; J1642; J3489; J3490; J7050; J9299

== ENCOUNTER 2019-10-25 09:26 | Day surgery (SDC) | payer OTHER, MEDICARE ==
[~2019-10-25 09:26] MED LIST changes: -Zoledronic Acid 4 MG in Sodium Chloride 0.9% 100 ML IVPB SCH
[2019-10-25] MEDS ORDERED: Sodium Chloride 0.9% 20 ML ONE (09:43)
[2019-10-25 09:57] VITALS: BP 175/85; TEMP 98
== END 2019-10-25 11:36 | disposition home or self-care (01) ==
LOC: ONC/OP 09:26
PROVIDERS: ATTEND Internal Medicine Medical Oncology
DX: Z51.12 Encounter for antineoplastic immunotherapy (principal); C34.2 Malignant neoplasm of middle lobe, bronchus or lung; C79.51 Secondary malignant neoplasm of bone; D47.2 Monoclonal gammopathy; D70.9 Neutropenia, unspecified
CPT/HCPCS: 96413; J1642; J7050; J9299

== ENCOUNTER 2019-11-06 09:02 | Outpatient (CLI) | payer OTHER, MEDICARE ==
[2019-11-06] MEDS ORDERED: Iopamidol-370 76% 500 ML 1 ML ONE (09:44)
--- NOTE | 2019-11-06 12:06 | CT ---
CT CHEST AND ABDOMEN WITH IV CONTRAST: Date: 11/06/2019 Oral contrast was administered. Multiplanar reconstruction. INDICATION: Lung cancer with bone mets. Mass in pancreas. Right pneumonectomy. Comparison made to prior exam of 05/14/[address] of 02/01/2019. FINDINGS: Images through the chest again show right pneumonectomy change. Fluid density in the right apical reg ion with surrounding pleural thickening is stable. The pleural density described on the prior exam posterior to the liver is stable consistent with pleu ral scarring. Tiny subcentimeter lymph nodes seen in the paravertebral region on the right just infer ior to this area of pleural density remain stable. Review of the left lung shows no evidence of inflammatory infiltrate. Stranding in the left lingula r egion and left lower lobe again noted. There is a more prominent area of linear parenchymal opacity i n the left posterior lung bases extending to the pleural surface most likely representing a linear at electasis. Review of the osseous structures again shows sclerotic metastatic lesions to thoracic and visualized lumbar vertebra, as well as numerous ribs and sternum. Images of the abdomen show pneumobilia. There is a biliary stent in place within the common duct whic h extends through the head of the pancreas and through the ampulla into the duodenum. The liver is heterogeneous. There is mild intrahepatic biliary duct dilatation, much less pronounced than on the prior study. There is a small enhancing nodular mass in the region of the head of the pancreas just anterior to th e stent which measures approximately 1.0 cm today. This was present on the prior exam, but is smaller today. It previously measured approximately 1.3 cm. A larger enhancing mass in the pancreas noted on the prior study is not appreciated today. Tail of the pancreas is atrophic with mildly prominent rinaldi creatic duct in the body and tail which appears stable. The left adrenal mass is unchanged. Kidneys unremarkable. Bowel loops unremarkable. No evidence of ad enopathy or free fluid. Osseous metastatic lesions appear stable. IMPRESSION: 1. Chest CT findings show new linear atelectasis in the left lung base extending to the pleural surf jeramy. Chest CT is otherwise stable from prior exam. 2. Abdominal CT shows biliary stent which appears patent and there is decrease in the biliary duct d ilatation. There is pneumobilia noted today. A small enhancing mass in the head of the pancreas is se en today. There were other enhancing masses in the pancreas noted previously which are not apparent t wilfrido. 3. Osseous metastatic lesions appear stable.
== END 2019-11-06 09:03 | disposition home or self-care (01) ==
LOC: BICCT 09:02
PROVIDERS: ATTEND Internal Medicine Medical Oncology
DX: C34.2 Malignant neoplasm of middle lobe, bronchus or lung (principal); C78.89 Secondary malignant neoplasm of other digestive organs; C79.51 Secondary malignant neoplasm of bone; C22.9 Malignant neoplasm of liver, not specified as primary or secondary; K86.89 Other specified diseases of pancreas; J98.11 Atelectasis; K83.8 Other specified diseases of biliary tract
CPT/HCPCS: 71260; 74160

== ENCOUNTER 2019-11-08 09:11 | Day surgery (SDC) | payer OTHER, MEDICARE ==
[~2019-11-08 09:11] MED LIST changes: +Zoledronic Acid 4 MG in Sodium Chloride 0.9% 100 ML IVPB SCH
[2019-11-08] MEDS ORDERED: Sodium Chloride 0.9% 20 ML ONE (09:45)
[2019-11-08 10:05] VITALS: BP 126/74; TEMP 98
== END 2019-11-08 11:26 | disposition home or self-care (01) ==
LOC: ONC/OP 09:11
PROVIDERS: ATTEND Internal Medicine Medical Oncology
DX: Z51.12 Encounter for antineoplastic immunotherapy (principal); C34.2 Malignant neoplasm of middle lobe, bronchus or lung; C79.51 Secondary malignant neoplasm of bone; D47.2 Monoclonal gammopathy; D70.9 Neutropenia, unspecified
CPT/HCPCS: 96367; 96413; J1642; J3489; J3490; J7050; J9299